=== PATIENT | female | born 1940 | race Caucasian/White ===

== ENCOUNTER 2018-03-21 17:11 | Inpatient (IN) ==
[2018-03-21] MEDS ORDERED: ONDANSETRON 4 MG/2 ML VIAL IV PRN (22:03)
[2018-03-21] MEDS ORDERED: MORPHINE 4 MG/1 ML VIAL IV PRN (22:03)
[2018-03-21] MEDS ORDERED: traZODone 50 MG TABLET PO PRN (22:03)
[2018-03-21] MEDS ORDERED: LATANOPROST BOTH EYES SCH (22:03)
[2018-03-21] MEDS ORDERED: MAGNESIUM HYDROXIDE SUSP 30 ML UDCUP PO PRN (22:03)
[2018-03-21] MEDS ORDERED: cloNIDine 0.1 MG TABLET PO PRN (22:03)
[2018-03-21] MEDS ORDERED: risperiDONE 0.25 MG TABLET PO PRN (22:03)
[2018-03-21 22:20] LABS: Basophils % 0.4 % (0.0-0.8); Eosinophils # 0.2 10*3/uL (0.0-0.87); Eosinophils % 2.1 % (0.00-10.9); Hematocrit 34.6 VOL% (35.7-47.0); Hemoglobin 11.1 GM/DL (12.0-16.0); Immature Granulocytes % 0.3 %; Immature Granulocytes Absolute 0.03 #; Lymphocytes # 1.8 10*3/uL (1.4-4.0); Lymphocytes % 19.6 % (21.3-54.2); Mean Corpuscular HGB Conc 32.1 GM/DL (32-36); Mean Corpuscular Hemoglobin 30 PG (27-34); Mean Corpuscular Volume 94.5 FL (87-102); Mean Platelet Volume 8.3 FL (9.6-12.0); Monocytes # 0.9 10*3/uL (0.11-0.8); Neutrophils # 6.2 10*3/uL (1.4-7.4); Neutrophils % 67.6 % (38.7-73.9); Platelet Count 315 T/CUMM (130-400); Red Blood Count 3.66 MC/CUMM (3.8-5.5); Red Cell Distribution Width 13.4 % (9.3-17.3); White Blood Count 9.1 T/CUMM (4-12)
[2018-03-21 22:30] LABS: INR 0.9; PT Patient Result 9.8 SECS
[2018-03-21 22:46] LABS: Osmolality,Calculated 278.8 MOS/KG (273-304); Potassium 4.2 MMOL/L (3.5-5.1)
[2018-03-21] MEDS: MIRTAZAPINE 30 MG TABLET PO SCH (23:03)
[2018-03-21] MEDS: ATORVASTATIN 20 MG TABLET PO SCH (23:10)
[2018-03-21] MEDS: MELATONIN 3 MG TABLET PO SCH (23:10)
[2018-03-21] MEDS: DEXTROSE 5% NACL 0.45% 1,000 ML IV SCH (23:13)
[2018-03-22] MEDS: LATANOPROST 0.005% OPH SOLN 2.5 ML BOTTLE BOTH EYES SCH ×2 (01:49→23:06)
[2018-03-22] MEDS ORDERED: ceFAZolin 2,000 MG in PREMIX 1 EACH IV ONE (06:52)
[2018-03-22] MEDS ORDERED: FAMOTIDINE 20 MG TABLET PO ONE (09:17)
[2018-03-22] MEDS: LISINOPRIL 20 MG TABLET PO SCH (09:45)
[2018-03-22] MEDS ORDERED: BACITRACIN OINT 0.9 GM PACK TOP ONE ×2 (11:30→13:57)
[2018-03-22] MEDS ORDERED: ACETAMINOPHEN 1,000 MG/100 ML VIAL IV ONE (13:50)
[2018-03-22] MEDS ORDERED: ROPIVACAINE 0.5% 30 ML VIAL ONE ×2 (14:15→14:18)
[2018-03-22] MEDS ORDERED: HYDROmorphone 2 MG/1 ML VIAL ONE (14:32)
[2018-03-22] MEDS ORDERED: ONDANSETRON 4 MG/2 ML VIAL ONE ×2 (14:32→15:03)
[2018-03-22] MEDS: HYDROmorphone 2 MG/1 ML VIAL IV PRN ×2 (14:33→14:49)
[2018-03-22] MEDS ORDERED: ONDANSETRON 4 MG/2 ML VIAL IV PRN (14:37)
[2018-03-22] MEDS ORDERED: PROPOFOL 200 MG/20 ML VIAL IV ONE (15:02)
[2018-03-22] MEDS ORDERED: SEVOFLURANE 1 UNIT/15 MINUTE INH ONE (15:03)
[2018-03-22] MEDS ORDERED: LIDOCAINE 1% 5 ML VIAL ONE (15:03)
[2018-03-22] MEDS ORDERED: PHENYLEPHRINE 1 MG/10 ML SYRINGE IV ONE (15:03)
[2018-03-22] MEDS ORDERED: fentaNYL 100 MCG/2 ML VIAL ONE (15:03)
[2018-03-22] MEDS: DEXTROSE 5% NACL 0.45% 1,000 ML IV SCH ×2 (16:00→19:09)
[2018-03-22] MEDS: ARIPiprazole 2 MG TABLET PO SCH (17:37)
[2018-03-22] MEDS: SERTRALINE 100 MG TABLET PO SCH (17:37)
[2018-03-22] MEDS: BUMETANIDE 1 MG TABLET PO SCH (17:37)
[2018-03-22] MEDS: LORATADINE 10 MG TABLET PO SCH (17:38)
[2018-03-22] MEDS: ceFAZolin 2,000 MG in PREMIX 1 EACH IV SCH (20:40)
[2018-03-22] MEDS: MELATONIN 3 MG TABLET PO SCH (20:41)
[2018-03-22] MEDS: MIRTAZAPINE 30 MG TABLET PO SCH (20:41)
[2018-03-22] MEDS: ATORVASTATIN 20 MG TABLET PO SCH (20:41)
[2018-03-23] MEDS: ceFAZolin 2,000 MG in PREMIX 1 EACH IV SCH (03:39)
[2018-03-23 07:11] LABS: Basophils % 0.4 % (0.0-0.8); Eosinophils # 0.2 10*3/uL (0.0-0.87); Eosinophils % 2.7 % (0.00-10.9); Hematocrit 29.4 VOL% (35.7-47.0); Hemoglobin 9.3 GM/DL (12.0-16.0); Immature Granulocytes % 0.5 %; Immature Granulocytes Absolute 0.04 #; Lymphocytes # 1.4 10*3/uL (1.4-4.0); Lymphocytes % 16.9 % (21.3-54.2); Mean Corpuscular HGB Conc 31.6 GM/DL (32-36); Mean Corpuscular Hemoglobin 31 PG (27-34); Mean Corpuscular Volume 96.7 FL (87-102); Mean Platelet Volume 8.4 FL (9.6-12.0); Monocytes # 1.1 10*3/uL (0.11-0.8); Monocytes % 12.6 % (1.7-12.7); Neutrophils # 5.7 10*3/uL (1.4-7.4); Neutrophils % 66.9 % (38.7-73.9); Platelet Count 254 T/CUMM (130-400); Red Blood Count 3.04 MC/CUMM (3.8-5.5); Red Cell Distribution Width 13.6 % (9.3-17.3); White Blood Count 8.5 T/CUMM (4-12)
[2018-03-23 07:23] LABS: Calcium 8.6 MG/DL (8.5-10.1); Osmolality,Calculated 276.7 MOS/KG (273-304); Potassium 3.9 MMOL/L (3.5-5.1)
[2018-03-23] MEDS: LISINOPRIL 20 MG TABLET PO SCH (11:02)
[2018-03-23] MEDS: SERTRALINE 100 MG TABLET PO SCH (11:02)
[2018-03-23] MEDS: BUMETANIDE 1 MG TABLET PO SCH (11:02)
[2018-03-23] MEDS: ARIPiprazole 2 MG TABLET PO SCH (11:02)
[2018-03-23] MEDS: LORATADINE 10 MG TABLET PO SCH (11:03)
[2018-03-23] MEDS: MELATONIN 3 MG TABLET PO SCH (20:27)
[2018-03-23] MEDS: MIRTAZAPINE 30 MG TABLET PO SCH (20:27)
[2018-03-23] MEDS: ATORVASTATIN 20 MG TABLET PO SCH (20:28)
[2018-03-23] MEDS: LATANOPROST 0.005% OPH SOLN 2.5 ML BOTTLE BOTH EYES SCH (20:28)
[2018-03-24] MEDS: BUMETANIDE 1 MG TABLET PO SCH (09:15)
[2018-03-24] MEDS: SERTRALINE 100 MG TABLET PO SCH (09:15)
[2018-03-24] MEDS: ARIPiprazole 2 MG TABLET PO SCH (09:15)
[2018-03-24] MEDS: LISINOPRIL 20 MG TABLET PO SCH (09:15)
[2018-03-24] MEDS: LORATADINE 10 MG TABLET PO SCH (09:15)
[2018-03-24 12:09] VITALS: BP 127/59
== END 2018-03-24 12:55 | disposition home or self-care (01) | DRG 494 ==
LOC: EDUNIT# → EDBD → N.ED 17:11 → N.EDINP 18:49 → N.3E 21:55
PROVIDERS: ADMIT Orthopaedic Surgery; ATTEND Orthopaedic Surgery